=== PATIENT | female | born 1995 | race Asian ===

== ENCOUNTER 2017-05-06 03:55 | Emergency (ER) | payer OTHER ==
[~2017-05-06] VITALS: Ht 165.1 cm; Wt 60.8 kg
[2017-05-06 03:55] VITALS: TEMP 36.5; Ht 165.1 cm; Wt 60.8 kg
[2017-05-06 04:23] VITALS: O2SAT 98
[2017-05-06 05:31] LABS: PREG INTERNAL NEGATIVE QC NEG CLEAR BACKGROUND; PREG INTERNAL POSITIVE QC POS CONTROL LINE
[2017-05-06 05:46] LABS: BUN/CREATININE RATIO 26.3 (10-20); CALCIUM 8.1 mg/dl (8.5-10.1); CREATININE 0.66 mg/dl (0.60-1.20)
[2017-05-06 05:54] LABS: POTASSIUM 3.2 mmol/L (3.5-5.1)
[2017-05-06] MEDS ORDERED: SODIUM CHLORIDE 0.9% 1000ML 1,000 ML IV STA (06:03)
[2017-05-06] MEDS ORDERED: OPTIRAY 320 IV PRN (06:15)
[2017-05-06 06:38] LABS: BASO % 0.4 %; BASO ABS # 0.03 K/uL (0-0.2); COMPLETE YES; HEMATOCRIT 40.2 % (37-47); IG% 0.3 %; LYMPH % 31.1 %; LYMPH ABS # 2.24 K/uL (1.2-3.4); MEAN CELL VOLUME 94.1 fL (80-100); MEAN CORPUSCULAR HEMOGLOBIN 32.1 pg (25-34); MEAN CORPUSCULAR HGB CONC 34.1 g/dl (32-36); MEAN PLATELET VOLUME 10.4 fL (7.4-10.4); MONO % 6.3 %; NEUT % 56.9 %; PLATELET COUNT 233 K/uL (130-400); RED BLOOD COUNT 4.27 M/uL (4.2-5.4)
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
[2017-05-06 07:07] LABS: ALKALINE PHOSPHATASE 81 U/L (45-117); ALT/SGPT 25 U/L (12-78); AST/SGOT 30 U/L (15-37)
[2017-05-06 09:02] LABS: URINE APPEARANCE CLEAR (CLEAR); URINE BILIRUBIN NEG (NEG); URINE COLOR YELLOW; URINE NITRITE NEG (NEG); URINE SPECIFIC GRAVITY 1.014 (1.000-1.030); UROBILINOGEN NEG (NEG); ZZURINE CULT IF INDIC CATH NO
[2017-05-06 09:06] LABS: MANUAL MICROSCOPIC REQUIRED? NO; REVIEW REQ? NO
[2017-05-06 11:11] LABS: BENZODIAZEPINE, URINE NEG (NEG); COCAINE,URINE NEG (NEG); PHENCYCLIDINE, URINE NEG (NEG)
[2017-05-06 12:56] VITALS: BP 98/66; PULSE 87; O2SAT 99
== END 2017-05-06 13:12 | disposition home or self-care (01) ==
LOC: C.EDC 03:58
DX: F10.120 Alcohol abuse with intoxication, uncomplicated (principal); V47.5XXA Car driver injured in collision with fixed or stationary object in traffic accident, initial encounter; Y90.8 Blood alcohol level of 240 mg/100 ml or more

== ENCOUNTER 2017-05-16 13:03 | Emergency (ER) | payer OTHER ==
[~2017-05-16] VITALS: Ht 167.6 cm; Wt 57.3 kg
[2017-05-16 13:09] VITALS: TEMP 36.7; O2SAT 99; Ht 167.6 cm; Wt 57.3 kg
[2017-05-16 13:52] VITALS: BP 127/67; PULSE 76
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
== END 2017-05-16 13:53 | disposition home or self-care (01) ==
LOC: C.EDB 13:04 → C.EDC 13:53
DX: F07.81 Postconcussional syndrome (principal); F41.9 Anxiety disorder, unspecified; F17.200 Nicotine dependence, unspecified, uncomplicated